=== PATIENT | male | born 1975 | race American Indian/Alaskan Native ===

== ENCOUNTER 2017-06-12 23:00 | Emergency (ER) | payer OTHER ==
[2017-06-12 23:51] VITALS: BP 137/92
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
[2017-06-13] MEDS ORDERED: MOTRIN PO ONE (02:23)
[2017-06-13] MEDS ORDERED: FLEXERIL PO ONE (02:23)
[2017-06-13] MEDS ORDERED: PERCOCET 5/325 PO ONE (02:23)
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
== END 2017-06-13 03:15 | disposition home or self-care (01) ==
LOC: ED 23:00
DX: S16.1XXA Strain of muscle, fascia and tendon at neck level, initial encounter (principal); V49.40XA Driver injured in collision with unspecified motor vehicles in traffic accident, initial encounter; F17.200 Nicotine dependence, unspecified, uncomplicated; Y93.89 Activity, other specified; Y92.89 Other specified places as the place of occurrence of the external cause; Y99.8 Other external cause status
CPT/HCPCS: 72125; 72131; 99284